=== PATIENT | male | born 1990 | race Caucasian/White ===

== ENCOUNTER 2018-01-05 22:24 | Emergency (ER) | payer OTHER ==
[~2018-01-05] VITALS: Ht 182.9 cm; Wt 105.7 kg
[2018-01-05 22:26] VITALS: BP 148/89
[2018-01-05] MEDS ORDERED: ONDANSETRON 2MG/ML, 2ML ONE (22:49)
[2018-01-05] MEDS ORDERED: ONDANSETRON 2MG/ML, 2ML IVPush ONE (23:00)
[2018-01-05] MEDS ORDERED: SODIUM CHLORIDE 0.9% 1,000ML IVBOLUS ONE (23:00)
[2018-01-05] MEDS ORDERED: SODIUM CHLORIDE FLUSH 10ML SYR IVF ONE (23:00)
[2018-01-05] MEDS ORDERED: PROPOFOL 10 MG/ML, 20ML ONE (23:00)
[2018-01-05] MEDS ORDERED: PROPOFOL 10 MG/ML, 20ML IVPush ONE (23:00)
== END 2018-01-06 00:04 | disposition home or self-care (01) ==
LOC: ED 23:59
DX: S03.00XA Dislocation of jaw, unspecified side, initial encounter (principal); X58.XXXA Exposure to other specified factors, initial encounter; Y93.89 Activity, other specified; Y92.89 Other specified places as the place of occurrence of the external cause; Y99.8 Other external cause status
CPT/HCPCS: 21480; 96374; 99152; 99285; J2405